=== PATIENT | male | born 1980 | race American Indian/Alaskan Native ===

== ENCOUNTER 2017-08-16 07:49 | Emergency (ER) | payer OTHER ==
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
--- NOTE | 2017-08-16 12:01 | XRay Report ---
AP AND LATERAL LUMBOSACRAL SPINE: Low back pain. The vertebral bodies are well mineralized and normal in alignment and vertebral height with well preserved interspace distances. The visualized portions of the posterior elements are normal. The pelvis is tilted but this may be positioning. IMPRESSION: Normal study.
[2017-08-16 12:02] VITALS: BP 156/97
== END 2017-08-16 12:22 | disposition home or self-care (01) ==
LOC: ED 07:49
DX: S39.012A Strain of muscle, fascia and tendon of lower back, initial encounter (principal); R07.89 Other chest pain; I10 Essential (primary) hypertension; V49.09XA Driver injured in collision with other motor vehicles in nontraffic accident, initial encounter; W22.11XA Striking against or struck by driver side automobile airbag, initial encounter; Y93.89 Activity, other specified; Y99.8 Other external cause status; Y92.488 Other paved roadways as the place of occurrence of the external cause
CPT/HCPCS: 71250; 72100